=== PATIENT | male | born 1975 | race African-American/Black ===

== ENCOUNTER 2019-10-05 20:09 | Emergency (ER) | payer MEDICAID ==
[2019-10-05] MEDS ORDERED: Morphine 10 MG/ML VIAL (1 ml) IV ONE (20:24)
[2019-10-05] MEDS ORDERED: NS 0.9% 1000 ML** 1,000 ML IV ONE (20:24)
[2019-10-05] MEDS ORDERED: Ketorolac INJ* 30 MG/ML 1 ML VIAL IV PUSH ONE (20:24)
--- NOTE | 2019-10-05 20:29 | ED ---
Lower Extremity - HPI Summary HPI Summary: The patient is a 44 y/o M arriving by ambulance to [facility] with a chief complaint of sudden onset RLE pain that has gradually worsened over the last few days. He describes the pain as a sharp and tingly sensation with numbness in the right foot. The left leg feels normal. He denies any urinary or fecal dysfunction. The pain is currently rated 10/10 in severity. Ambulating aggravates the pain, but there are no alleviating factors. He has not experienced this pain before. No known injury with fall or lifting. No PMHx. Heavy every day smoker, no EtOH, no substance use. Medications reviewed. Allergies noted. - History of Current Complaint Chief Complaint: EDExtremityLower Stated Complaint: RIGHT LEG PAIN PER EMS Time Seen by Provider: 10/05/19 20:19 Hx Obtained From: Patient Mechanism Of Injury: Unknown Onset of Pain: Days Onset/Duration: Still Present Severity Initially: Moderate Severity Currently: Severe Pain Intensity: 10 Pain Scale Used: 0-10 Numeric Timing: Constant Location: Is Diffuse - throughout RLE Character Of Pain: Sharp Associated Signs And Symptoms: Positive: Other - numbness in right foot; Negative: urinary or fecal dysfunction Aggravating Factor(s): Ambulation Alleviating Factor(s): Nothing - Allergies/Home Medications Allergies/Adverse Reactions: Allergies Allergy/AdvReac Type Severity Reaction Status Date / Time No Known Allergies Allergy Verified 10/05/19 20:15 PMH/Surg Hx/FS Hx/Imm Hx Endocrine/Hematology History: Denies: Hx Diabetes Cardiovascular History: Denies: Hx Hypertension Respiratory History: Denies: Hx Asthma Sensory History: Denies: Hx Legally Blind, Hx Deafness Opthamlomology History: Denies: Hx Legally Blind EENT History: Denies: Hx Deafness - Surgical History Surgical History: None Surgery Procedure, Year, and Place: none Infectious Disease History: No Infectious Disease History: Denies: Traveled Outside the [place] in Last 30 Days - Family History Known Family History: Negative: Cardiac Disease - Social History Alcohol Use: None Hx Substance Use: No Substance Use Type: Reports: None Hx Tobacco Use: Yes Smoking Status (MU): Heavy Every Day Tobacco Smoker Review of Systems Negative: Other - bowel dysfunction Negative: other - urinary dysfunction Positive: Other - pain throughout RLE Positive: Numbness - right foot All Other Systems Reviewed And Are Negative: Yes Physical Exam - Summary Physical Exam Summary: Appearance: Well-nourished, Middle-aged male lying in the stretcher appearing to be in pain Skin: Warm, dry, no obvious rash Eyes: sclera anicteric, no conjunctival pallor ENT: mucous membranes moist, pharynx appears normal Neck: Supple, nontender Respiratory: Clear to auscultation, no signs of respiratory distress Cardiovascular: Normal S1, S2. No murmurs. Normal distal pulses in tibial and radial bilaterally. Abdomen: Soft, nontender, normal active bowel sounds present Musculoskeletal: Normal, Strength/ROM Intact Neurological: A&Ox3, awake and alert, mentation is normal, speech is fluent and appropriate, Sensation in the lower extremities appears to be intact and symmetric, Patient states slightly decreased sensation in the right lower leg and foot compared to the left, Pain with plantarflexion and dorsiflexion but unsure if this is effort-related, No hyperactive reflexes at the knee or ankle, No clonus Psychiatric: affect is normal, does not appear anxious or depressed Rectal: Good sensation in perineum, normal rectal tone Triage Information Reviewed: Yes Vital Signs On Initial Exam: Initial Vitals Temp Pulse Resp BP Pulse Ox 98.3 F 86 20 128/54 96 10/05/19 20:12 10/05/19 20:12 10/05/19 20:12 10/05/19 20:12 10/05/19 20:12 Vital Signs Reviewed: Yes Procedures - Sedation Patient Received Moderate/Deep Sedation with Procedure: No Diagnostics - Vital Signs Vital Signs Temp Pulse Resp BP Pulse Ox 10/05/19 20:12 98.3 F 86 20 128/54 96 - Laboratory Result Diagrams: 10/05/19 20:35 10/05/19 20:35 Lab Statement: Any lab studies that have been ordered have been reviewed, and results considered in the medical decision making process. Re-Evaluation - Re-Evaluation First Eval Re-Evaluation Time: 21:55 Change: Improved Comment: Patient ambulates with steady gait. We discussed all results and plan for discharge. Lower Extremity Course/Dx - Course Course Of Treatment: 44 y/o M presenting with worsening RLE pain over the last few days described as a sharp tingling sensation and accompanied by numbness in the right foot. No urinary or fecal dysfunction. Physical exam reveals middle- aged male lying in the stretcher appearing to be in pain, sensation in the lower extremities appears to be intact and symmetric although patient states slightly decreased sensation in the right lower leg and foot compared to the left, pain with plantarflexion and dorsiflexion but unsure if this is effort- related, no hyperactive reflexes at the knee or ankle, and no clonus. Rectal exam shows good sensation in perineum with normal rectal tone. He has no hard neurologic signs. Blood work obtained without suggestion of spinal infection. Patient administered IV fluids, and Morphine, Toradol, and Decadron for pain. Patient able to ambulate well with steady gait. Patient understands and agrees with plan for discharge with rx for Decadron, Ativan, and Percocet. Dx sicatica. - Diagnoses Provider Diagnoses: Sciatica Discharge ED - Sign-Out/Discharge Documenting (check all that apply): Patient Departure - Patient will be discharged home. - Discharge Plan Condition: Good Disposition: HOME Prescriptions: Dexamethasone TAB* [Decadron TAB*] 6 mg PO DAILY #6 tab LORazepam TAB(*) [Ativan 0.5 MG TAB (*)] 0.5 mg PO Q8H PRN #15 tab MDD 3 PRN Reason: Muscle spasm oxyCODONE/Acetamin 5/325 MG* [Percocet 5/325 TAB*] 1 tab PO Q4H PRN #20 tab MDD 6 PRN Reason: Pain - Severe Patient Education Materials: Sciatica (ED) Referrals: [facility] [Outside] - 1 Week (if not better) Additional Instructions: Use the percocet sparingly, just for severe pain the other medications can't help with. - Billing Disposition and Condition Condition: GOOD Disposition: Home - Attestation Statements Document Initiated by Kellen: Yes Documenting Scribe: Kimberley Snow Provider For Whom Kellen is Documenting (Include Credential): Dr. Buster Padilla MD Scribe Attestation: Kimberley Velasquez scribed for Dr. Buster Padilla MD on 10/06/19 at 0557. Scribe Documentation Reviewed: Yes Provider Attestation: The documentation as recorded by the Kimberley earl accurately reflects the service I personally performed and the decisions made by me, Dr. Buster Padilla MD Status of Scribe Document: Viewed
[2019-10-05 20:42] LABS: ABS Basophils 0.1 10^3/ul (0-0.2); ABS Eosinophils 0.1 10^3/ul (0-0.6); ABS Lymphocytes 1.8 10^3/ul (1.0-4.8); ABS Neutrophils 7.2 10^3/ul (1.5-7.7); Eosinophil % 0.9 %; Hematocrit 46 % (42-52); Hemoglobin 15.4 g/dL (14.0-18.0); Lymphocyte % 18.1 %; Mean Corpuscular HGB Conc 34 g/dL (31-36); Mean Corpuscular Hemoglobin 27 pg (27-31); Mean Corpuscular Volume 80 fL (80-94); Mean Platelet Volume 8.6 fL (7.4-10.4); Platelet Count 212 10^3/uL (150-450); Red Blood Count 5.77 10^6 /uL (4.18-5.48); Red Cell Distribution Width 15 % (10-15); White Blood Count 10.1 10^3/uL (3.5-10.8)
[2019-10-05 20:58] LABS: Albumin 4.5 g/dL (3.2-5.2); Albumin/Globulin Ratio 1.4 (1-3); BUN/Creatinine Ratio 8.8 (8-20); C Reactive Protein 4.24 mg/L (<8.01); Calcium 10.1 mg/dL (8.6-10.3); EGFR Non-African American 79.3 (>60); Globulin 3.3 g/dL (2-4); Potassium 3.5 mmol/L (3.5-5.0); Total Bilirubin 0.8 mg/dL (0.2-1.0); Total Protein 7.8 g/dL (6.4-8.9)
[2019-10-05] MEDS ORDERED: Dexamethasone IV* 4 MG/ML 1 ML (4 MG) PO ONE (21:54)
[2019-10-05 22:11] VITALS: BP 94/50
== END 2019-10-05 22:10 | disposition home or self-care (01) ==
LOC: ED 20:09
DX: M54.30 Sciatica, unspecified side (principal); F17.200 Nicotine dependence, unspecified, uncomplicated
CPT/HCPCS: 36415; 80053; 85025; 86140; 96361; 96374; 96375; 99282; J1100; J1885; J2270